=== PATIENT | female | born 1990 | race Caucasian/White ===

== ENCOUNTER 2017-12-08 11:33 | Inpatient (IN) ==
[2017-12-08] MEDS ORDERED: Aluminum/Magnesium/Simethacone Susp 30 ML UDC PO PRN (16:04)
[2017-12-08] MEDS ORDERED: Acetaminophen 325 MG Tablet PO PRN (16:04)
--- NOTE | 2017-12-09 09:50 | P.HPPSY ---
Provisional Diagnosis Admission Date: December 08, 2017 13:19 [place] I.: 1. Major depressive disorder, single episode, moderate 2. Unspecified anxiety disorder 3. Nonsuicidal self injury 4. Cannabis use, rule out use disorder [place] II.: Deferred Competence Certification of Person's Competence To Provide Express and Informed Consent I have personally examined Jessica Lockett, a person being served at [facility] on, December 09, 2017 0941. Express and informed consent means consent voluntarily given in writing, by a competent person, after sufficient explanation and disclosure of the subject matter involved to enable the person to make a knowing and willful decision without any element of force, fraud, deceit, duress, or other form of constraint or coercion. This person is 18 years of age or older, is not now known to be incompetent to consent to treatment with a guardian advocate, and does not have a health care surrogate or proxy currently making medical treatment decisions. I have found this person to be one of the following: [X] Competent to provide express and informed consent, as defined above, for voluntary admission to this facility and is competent to provide express and informed consent for treatment. He/she has the consistent capacity to make well reasoned, willful, and knowing decisions concerning his or her medical or mental health treatment. The person fully and consistently understands the purpose of the admission for examination/placement and is fully capable of personally exercising all rights assured [place] [] Incompetent to provide express and informed consent to voluntary admission, and this is incompetent to provide express and informed consent to treatment. The person must be transferred to involuntary status and a petition for a guardian advocate filed with the Circuit Court. [] Refusing to provide express and informed consent to voluntary admission but is competent to provide express and informed consent for treatment. The person must be discharged or transferred to involuntary status. Form shall be completed within 24 hours of a person's arrival at the receiving facility and filed in the clinical record of each person: 1. Admitted on a voluntary basis 2. Permitted to provide express and informed consent to his/her own treatment 3. Allowed to transfer from involuntary to voluntary status 4. Prior to permitting a person to consent to his or her own treatment after having been previously found incompetent to consent to treatment. History of Present Illness Capacity: Has capacity Chief Complaint: Depression History of Present Illness: Ms. Lockett is a 27-year-old female with no previous psychiatric diagnoses who presents in transfer from [facility] under a Gonzalez act. Documentation from outside hospital reviewed. Patient presented there complaining of suicidal ideation in the setting of low mood. She also had evidence of self injury, namely superficial scratches to her bilateral lower legs. Reviewing our electronic medical record, I see no previous psychiatric contact within our system. Patient seen and examined on the high acuity unit to which the patient has been admitted with nurse, Farrah. Chart reviewed. Case discussed with nursing staff. No behavioral issues noted overnight. On my examination today, the patient tells me that she has been feeling depressed for the last 6 years. Major stressor is family conflict. She says "my family is all about themselves. I have no one to talk to. It has been like that for years, but no one listens." She says that she has been having thoughts along the lines of "I do not want to be here no more. I do not want to wake up." She admits to scratching herself on her thighs but insists that this was nonsuicidal self injury. In addition to low mood, the patient describes sleep disturbance and seems fairly anhedonic. No appetite disturbances reported. She describes a good deal of comorbid anxiety and says that she becomes agitated easily. I can elicit no hypomanic or manic symptoms now, nor can I elicit any history consistent with hypomania or anum. She denies any audiovisual hallucinations. I can elicit no delusional material. Although she does describe a trauma history, I can elicit no nightmares/reexperiencing. She does describe some avoidance of conversations regarding babies, having suffered a miscarriage 4 years ago and also presents with some hyper arousal. The remainder of the psychiatric ROS is negative. No acute physical complaints. Past psychiatric history: The patient denies a history of psychiatric diagnosis. She denies a history of inpatient or outpatient psychiatric treatment. She does report a history of nonsuicidal self-injurious behavior as a teenager but denies any history of suicide attempts. Family history: Depression and anxiety run on her mother's side of the family. There is also a questionable family history of bipolar disorder. Patient reports that her maternal aunt and mother both cut, unclear if this was suicidal or nonsuicidal injury. Mother also reportedly has tried to overdose on Tylenol in the past. Chemical dependency history: The patient reports that she smokes cannabis. She also smokes 2 packs a day of cigarettes. She says that the nicotine patch that she has received here has caused a rash, and we discussed switching her to the gum instead. Urine toxicology at outside hospital was positive for benzodiazepines, but the patient denies any benzodiazepine use. She does say that she was given some medication for sleep at outside hospital, possibly a benzo. Social history: The patient says that lately she has been staying on other people's couches. She is single with no children. She was 4 years ago but suffered a miscarriage. She also experienced the dissolution of her relationship of 3 years relatively recently. She has her GED. She works at 2 different [employer]. She denies any history. Denies any legal history except for juvenile charges related to alcohol use. She denies any access to guns or firearms., Although raised Muslim, she espouses no particular spiritism beliefs now. She denies any other trauma history besides the miscarriage, except she does not know who her real father is. Past medical history: The patient has a childhood history of coarctation of the aorta status post repair. She also has pilonidal cyst. She also complains of chronic dental pain. Medications: No home medications. Allergies: No known allergies. - Inpatient Certification I certify that the inpatient services were ordered in accordance with Medicare regulations governing the order. This includes certification that hospital inpatient services are reasonable and necessary and in the case of services not specified as inpatient-only under 42 CFR 419.22(n), that they are appropriately provided as inpatient services in accordance to with the 2-midnight benchmark under 43 CFR 412.3(e) I certify that inpatient psychiatric hospital services are medically necessary. Evaluation and treatment and/or diagnostic testing are expected to improve the patient's condition. The patient needs on a daily basis, active treatment furnished directly by or requiring the supervision of inpatient psychiatric facility personnel. Estimated Total Length of Stay (Days): 5 (3-5) Plans for Post Hospital Care: Home Review of Systems All other systems reviewed negative except as stated in HPI PMFSH - History History Provided By: Patient - Tobacco History Second Hand Smoke Exposure: Yes Tobacco Use In Past 30 Days: Yes Smoking Status: Current every day smoker Tobacco Type: Cigarettes - Alcohol History How Often Do You Have a Drink Containing Alcohol: Monthly or less - Substance Use History Substance History: No History of Abuse - Immunization History Tetanus Immunization: Never Vaccinated Hx Influenza Vaccine This Season: No Quality Measures - Patient Strengths Patient's strengths (minimum of 2): Attending to basic needs. Verbally fluent. Medications and Allergies Active Medications: Active Medications Acetaminophen (Tylenol) 650 mg PO Q4H PRN PRN Reason: Pain 1-5 or Temp >101F Al Hydrox/Mg Hydrox/Simethicone (Mag-Al Plus Susp Liq) 30 ml PO Q6H PRN PRN Reason: DYSPEPSIA Al Hydroxide/Mg Hydroxide (Milk Of Magnesia Liq) 30 ml PO DAILY PRN PRN Reason: CONSTIPATION Citalopram Hydrobromide (Celexa) 20 mg PO DAILY JUANITO Hydroxyzine HCl (Atarax) 50 mg PO Q6H PRN PRN Reason: ANXIETY Nicotine Polacrilex (Nicotine Gum) 4 mg CHEW Q1H PRN PRN Reason: Nicotine craving Trazodone HCl (Desyrel) 50 mg PO HS PRN PRN Reason: Insomnia Allergies Allergy/AdvReac Type Severity Reaction Status Date / Time No Known Allergies Allergy Uncoded 08/11/14 02:02 Results - Labs Labs: Laboratories from outside hospital reviewed: CBC wnl CMP unremarkable UA bland UTox +BZD, THC Tylenol, salicylate both undetectable Urine test negative Exam Vital signs: Vital Signs 12/08/17 16:58 12/09/17 05:57 Temperature 98.1 F 98.4 F Pulse Rate 86 73 Respiratory Rate 19 18 Blood Pressure 147/70 H 132/74 Pulse Oximetry 99 Intake & Output 12/08/17 12/09/17 12/09/17 18:59 06:59 18:59 Weight 78.6 kg Other: Weight On Admission 78.6 kg Narrative: Physical examination completed by ED provider at outside hospital. On my examination today, the patient appears to be in no acute physical distress. No motor abnormalities noted. No signs of intoxication or withdrawal noted. The patient does report superficial scratches on bilateral lower extremities and demonstrates these on the lateral aspect of her right thigh. The scratches are quite superficial and do not appear infected. Labs and vital signs reviewed. Mental Status Examination Appearance: Appropriate Consciousness: Alert Orientation: x4 Motor Activity: Other (No motor abnormalities noted) Speech: Unremarkable Language: Adequate Fund of Knowledge: Adequate Attention and Concentration: Adequate Memory: Unremarkable (Grossly intact on clinical exam) Mood: Anxious, Other (Depressed) Affect: Anxious, Other (Dysphoric) Thought Process & Associations: Intact, Logical, Linear Thought Content: Appropriate Hallucination Type: None Delusion Type: None Suicidal Ideation: No (Passive thoughts of but no active suicidal ideation ) Suicidal Plan: No Suicidal Intention: No Homicidal Ideation: No Homicidal Plan: No Homicidal Intention: No Insight: Fair Judgment: Impulsive Assessment and Plan - Assessment (1) Major depressive disorder, single episode, moderate Code(s): F32.1 - Major depressive disorder, single episode, moderate Status: Acute (2) Anxiety disorder, unspecified Code(s): F41.9 - Anxiety disorder, unspecified Status: Acute (3) Non-suicidal self harm Code(s): R45.89 - Other symptoms and signs involving emotional state Status: Acute - Plan Plan: 27-year-old female with psychiatric history as detailed above who presents in transfer from outside hospital under a Gonzalez act. On my examination today, the patient elaborates symptoms of depression and anxiety consistent with episode of major depression and unspecified anxiety disorder. She also reports recent nonsuicidal self injury. Ongoing stressors include issues with family. Patient requires psychiatric hospitalization at this time for safety, observation and stabilization. Admit inpatient. Voluntary status. Transfer to lower acuity unit. Discussed with charge nurse. Initiate Celexa 20 mg daily for management of mood and anxiety. Atarax as needed for anxiety. Trazodone as needed for sleep. R/B/A for medications discussed with patient. Check a TSH. Vitals every shift. Counselor to see and obtain collateral information. Disposition planning. Estimated length of stay: 3-5 days. Justification for Continued Inpatient Stay: Med changes. Monitoring for impairment in safety. Discharge Planning: Pending psychiatric stabilization Request Healthcare Surrogate/Guardian Advocate?: No
[2017-12-09] MEDS: Citalopram 20 MG Tablet PO SCH (10:12)
[2017-12-09] MEDS: traZODone 50 MG Tablet PO PRN (21:22)
[2017-12-10] MEDS: Citalopram 20 MG Tablet PO SCH (08:40)
--- NOTE | 2017-12-10 12:30 | P.PNPSY ---
Subjective Chief Complaint: Depression Remarks: Reviewed electronic medical records and discussed case with staff. Follow-up was conducted in the hallway with nurse present. Nurse advises that yesterday she was medicated with Atarax prior to her visit with her mother and that they had a good visit. She also states that the patient is discharged focused. Patient reports that she tossed and turned last nigh. She did get a new roommate in the middle the night. She states that after taking some Atarax slept well. She reports that her appetite is been good and denies any side effects from medication. Appropriate throughout the interview. Her mood is good and her affect is euthymic. Mental Status Examination Appearance: Appropriate Consciousness: Alert Orientation: x4 Motor Activity: Other (No motor abnormalities noted) Speech: Unremarkable Language: Adequate Fund of Knowledge: Adequate Attention and Concentration: Adequate Memory: Unremarkable (Grossly intact on clinical exam) Mood: Anxious, Other (Depressed) Affect: Anxious, Other (Dysphoric) Thought Process & Associations: Intact, Logical, Linear Thought Content: Appropriate Hallucination Type: None Delusion Type: None Suicidal Ideation: No (Passive thoughts of but no active suicidal ideation ) Suicidal Plan: No Suicidal Intention: No Homicidal Ideation: No Homicidal Plan: No Homicidal Intention: No Insight: Fair Judgment: Impulsive Assessment and Plan - Assessment (1) Major depressive disorder, single episode, moderate Code(s): F32.1 - Major depressive disorder, single episode, moderate Status: Acute - Plan Plan: Patient will be reevaluated tomorrow by her attending psychiatrist. Continue with current treatment plan. Justification for Continued Inpatient Stay: Moving this patient to a less restrictive environment would likely result in decompensation. Patient reports that she is hopeful for discharge tomorrow. Request Healthcare Surrogate/Guardian Advocate?: No
[2017-12-10 18:23] VITALS: RESP 16
[2017-12-10] MEDS: traZODone 50 MG Tablet PO PRN (20:23)
[2017-12-11] MEDS: Citalopram 20 MG Tablet PO SCH (08:33)
--- NOTE | 2017-12-11 17:43 | P.PNPSY ---
Subjective Chief Complaint: Depression Remarks: Patient seen for follow-up, chart reviewed. Discussion with nursing staff reported that the patient continues to feel depressed, along with continued anxiety, flat affect but denying any suicide ideations. Patient was found sitting hospital bed noted B, cooperative. Patient states he has been feeling anxious throughout the day continues to feel depressed and noted to be tearful throughout interview. Patient states that she continues to feel that she has not been feeling "not good enough" in regards to her personal relationships which she states that recently broke up with a 2-year relationship and had moved out of the apartment and had been living "from couch to couch". Patient states that she has not spoken to her family and had been welcome to stay with her mother and as well as with her aunt and uncle upon discharge. Patient reports having had some difficulty with sleep last evening but denying any suicide ideations. Review of Systems All other systems reviewed negative except as stated in HPI Mental Status Examination Appearance: Appropriate Consciousness: Alert Orientation: x4 Motor Activity: Other (No motor abnormalities noted) Speech: Unremarkable Language: Adequate Fund of Knowledge: Adequate Attention and Concentration: Adequate Memory: Unremarkable (Grossly intact on clinical exam) Mood: Anxious, Other (Depressed) Affect: Anxious, Other (tearful at times) Thought Process & Associations: Intact, Logical, Linear Thought Content: Appropriate Hallucination Type: None Delusion Type: None Suicidal Ideation: No (Passive thoughts of but no active suicidal ideation ) Suicidal Plan: No Suicidal Intention: No Homicidal Ideation: No Homicidal Plan: No Homicidal Intention: No Insight: Fair Judgment: Impulsive Assessment and Plan - Assessment (1) Major depressive disorder, single episode, moderate Code(s): F32.1 - Major depressive disorder, single episode, moderate Status: Acute (2) Anxiety disorder, unspecified Code(s): F41.9 - Anxiety disorder, unspecified Status: Acute (3) Non-suicidal self harm Code(s): R45.89 - Other symptoms and signs involving emotional state Status: Acute - Plan Plan: Patient this time continues with depressed mood, tearful during interview but denying any suicide ideations. Patient also noted to be anxious throughout the day and had receive Atarax as needed. Discussion of starting patient on buspirone was reviewed as well as benefits/risks/alternatives and had provided consent to start this medications. We will start buspirone 5 mg p.o. 3 times daily for anxiety, continue rest of medications. Continue to monitor mood and behavior. Discharge planning in progress. Justification for Continued Inpatient Stay: At risk for further decompensation if at lower level of care. Request Healthcare Surrogate/Guardian Advocate?: No
[2017-12-11] MEDS: traZODone 50 MG Tablet PO PRN (21:37)
[2017-12-12 05:46] VITALS: BP 102/57; PULSE 68; TEMP 98.3; O2SAT 99
[2017-12-12] MEDS: Citalopram 20 MG Tablet PO SCH (09:07)
--- NOTE | 2017-12-12 20:35 | P.DSPSY ---
Psychiatry Discharge Summary Inpatient Psychiatric care?: Yes Advance Directives: No Mental Health Advance Directive: No Health Care Proxy: No - Admission Admission Date: December 08, 2017 13:19 - Admission Diagnosis (1) Major depressive disorder, single episode, moderate Code(s): F32.1 - Major depressive disorder, single episode, moderate Brief History: Ms. Lockett is a 27-year-old female with no previous psychiatric diagnoses who presents in transfer from [facility] under a Gonzalez act. Documentation from outside hospital reviewed. Patient presented there complaining of suicidal ideation in the setting of low mood. She also had evidence of self injury, namely superficial scratches to her bilateral lower legs. Reviewing our electronic medical record, I see no previous psychiatric contact within our system. Patient seen and examined on the high acuity unit to which the patient has been admitted with nurse, Farrah. Chart reviewed. Case discussed with nursing staff. No behavioral issues noted overnight. On my examination today, the patient tells me that she has been feeling depressed for the last 6 years. Major stressor is family conflict. She says "my family is all about themselves. I have no one to talk to. It has been like that for years, but no one listens." She says that she has been having thoughts along the lines of "I do not want to be here no more. I do not want to wake up." She admits to scratching herself on her thighs but insists that this was nonsuicidal self injury. In addition to low mood, the patient describes sleep disturbance and seems fairly anhedonic. No appetite disturbances reported. She describes a good deal of comorbid anxiety and says that she becomes agitated easily. I can elicit no hypomanic or manic symptoms now, nor can I elicit any history consistent with hypomania or anum. She denies any audiovisual hallucinations. I can elicit no delusional material. Although she does describe a trauma history, I can elicit no nightmares/reexperiencing. She does describe some avoidance of conversations regarding babies, having suffered a miscarriage 4 years ago and also presents with some hyper arousal. The remainder of the psychiatric ROS is negative. No acute physical complaints. Past psychiatric history: The patient denies a history of psychiatric diagnosis. She denies a history of inpatient or outpatient psychiatric treatment. She does report a history of nonsuicidal self-injurious behavior as a teenager but denies any history of suicide attempts. Family history: Depression and anxiety run on her mother's side of the family. There is also a questionable family history of bipolar disorder. Patient reports that her maternal aunt and mother both cut, unclear if this was suicidal or nonsuicidal injury. Mother also reportedly has tried to overdose on Tylenol in the past. Chemical dependency history: The patient reports that she smokes cannabis. She also smokes 2 packs a day of cigarettes. She says that the nicotine patch that she has received here has caused a rash, and we discussed switching her to the gum instead. Urine toxicology at outside hospital was positive for benzodiazepines, but the patient denies any benzodiazepine use. She does say that she was given some medication for sleep at outside hospital, possibly a benzo. Social history: The patient says that lately she has been staying on other people's couches. She is single with no children. She was 4 years ago but suffered a miscarriage. She also experienced the dissolution of her relationship of 3 years relatively recently. She has her GED. She works at 2 different [employer] She denies any history. Denies any legal history except for juvenile charges related to alcohol use. She denies any access to guns or firearms., Although raised Gnosticism, she espouses no particular druze beliefs now. She denies any other trauma history besides the miscarriage, except she does not know who her real father is. Past medical history: The patient has a childhood history of coarctation of the aorta status post repair. She also has pilonidal cyst. She also complains of chronic dental pain. Medications: No home medications. Allergies: No known allergies. Tobacco Use In Past 30 Days: Yes How Often Do You Have a Drink Containing Alcohol: Monthly or less Hospital Course: Ms. Lockett is a 27-year-old female with no previous psychiatric diagnoses who presents in transfer from [facility] under a Gonzalez act for suicidal ideation along superficial cuts to thighs which she was transferred to the inpatient psychiatry for further evaluation and management. Patient started on citalopram 20mg daily and buspirone 5mg TID which she tolerated well with no notable adverse drug reactions. Patient was noted with improvement in mood, noted to have denied having any suicidal ideations since admission. She was observed by staff to not have had any behavioral disturbances, not having made any suicidal or homicidal statements and maintained stable mood through admission and was noted to participate with staff adequately. Patient was noted to participate in self care, engaging with staff and maintaining adequate hygiene. Patient reported feeling more hopeful, future oriented and motivated to continue to work out her relationship with family and continue with outpatient follow up. Treatment team was able to set up outpatient follow up appointments which the patient can continue current medication regimen. Upon discharge patient stated that she was feeling good, reported feeling well with the treatment, as well as motivation to continue recommendations and denied any SI, HI, perceptual disturbances or delusions. Weighing the acute, chronic, and protective factors and based on the available evidence, I bobtail driver to a reasonable degree of medical certainty that the patient is at low imminent risk of harm to self or others from a mental illness as defined under the Gonzalez act and level of function is adequate as observed on the unit for planned level of outpatient care. Patient was counseled regarding warning signs for need to return to the psychiatric emergency room as part of a general safety plan. Patient advised to call 911 or go nearest ED in case of emergency. Patient agreed with plan. - Discharge Discharge Date: 12/12/17 - Discharge Diagnosis (1) Major depressive disorder, single episode, moderate Code(s): F32.1 - Major depressive disorder, single episode, moderate Status: Acute Discharge Disposition: Home - Discharge Instructions Discharge Diet: Regular Diet Activities You Can Perform: Regular- No Restrictions - Discharge Time > 30 minutes Mental Status Examination Appearance: Appropriate Consciousness: Alert Orientation: x4 Motor Activity: Other (No motor abnormalities noted) Speech: Unremarkable Language: Adequate Fund of Knowledge: Adequate Attention and Concentration: Adequate Memory: Unremarkable Mood: Appropriate Affect: Appropriate Thought Process & Associations: Intact, Logical, Linear Thought Content: Appropriate Hallucination Type: None Delusion Type: None Suicidal Ideation: No Suicidal Plan: No Suicidal Intention: No Homicidal Ideation: No Homicidal Plan: No Homicidal Intention: No Insight: Fair Judgment: Impulsive Discharge/Advance Care Plan - Results Vital Signs: Last Vital Signs Temp 98.3 F 12/12/17 05:45 Pulse 68 12/12/17 05:45 Resp 16 12/12/17 05:45 BP 102/57 L 12/12/17 05:45 Pulse Ox 99 12/12/17 05:45 Lab Results: Laboratory Results TSH 2.300 uIU/mL (0.358-3.740) 12/09/17 10:47 Summary of Procedures: none Pending Results: None - Medications Number of antipsychotic medications at discharge: 0 - Discharge Care Plan Goals to Promote Your Health: * To prevent worsening of your condition and complications * To maintain your health at the optimal level Directions to Meet Your Goals: Take your medications as prescribed Follow your dietary instruction Follow activity as directed Keep your appointments as scheduled Take your immunizations and boosters as scheduled If your symptoms worsen call your PCP, if no PCP go to Urgent Care Center or Emergency Room For 12/12 questions related to your inpatient stay or results of tests pending at discharge, please contact Dr. Lionel Oakley MD at Smoking is Dangerous to Your Health. Avoid second hand smoking
== END 2017-12-12 13:08 | disposition home or self-care (01) ==
LOC: H270 13:19 → H260 12-09 12:37
PROVIDERS: ADMIT Student in an Organized Health Care Education/Training Program; ATTEND Student in an Organized Health Care Education/Training Program
CPT/HCPCS: 84443